=== PATIENT | male | born 2005 | race Asian ===

== ENCOUNTER 2025-07-05 21:31 | Emergency (ER) | payer MEDICAID ==
[~2025-07-05] VITALS: Ht 177.8 cm; Wt 68.7 kg
[2025-07-05 21:52] VITALS: BP 128/86; PULSE 118; RESP 16; O2SAT 97
--- NOTE | 2025-07-05 22:39 | Physician Documentation ---
History of Present Illness ~ Chief Complaint: Hand pain Stated Complaint: WRIST PAIN Time Seen by MD: 22:16 Source: patient Mode of Arrival: POV Exam Limitations: no limitations HPI Patient presents after sustaining trauma to his right hand after punching a wall just prior to arrival. He complains of pain around his dorsal surface of his hand at the level of the 4th and 5th finger. Tetanus within 5 years: No Medication Reconciliation Allergies: Coded Allergies: No Known Allergies (Unverified , 07/05/25) Past Medical History Past Medical History: No Pertinent History Past Surgical History: no surgical history Alcohol Use: None Drug Use: none Lives In: Home Review of Systems All Other Systems at this time: Reviewed and Negative ROS Patient complains of right hand pain. Was asked, but otherwise denies review of systems. Physical Exam Vital Signs: RN Vital Signs have been reviewed: Yes, Temperature: 99.0, Source: Temporal, Heart Rate: 118, Respiratory Rate: 16, BP: 128/86, Pulse Oximetry: 97, Weight: 68.700 Oxygen Flow Rate: 0 Pulse Oximetry Reflects: adequate oxygenation Physical Exam General: Awake, alert, oriented. No apparent distress Neck: Supple. Normal range of motion. No JVD Respiratory: Lungs are clear to auscultation bilaterally. No respiratory distress. Chest: Normal shape and size. No accessory muscle use. Cardiovascular: Regular rate and rhythm. S1-S2. No murmur, gallop, rub. Extremities: Right hand is swollen. There is pain with palpation over the 4th and 5th meta carpal. CMS is intact. Neurologic: Alert and oriented x4. Nonfocal Psychiatric: Normal mood and affect. Skin: Normal color. Warm and dry. Procedures Joint Reduction : Reduction By: myself Conscious Sedation: No Pre-Procedure NV Exam: within normal limits Post-Procedure NV Exam: within normal limits Post Reduction Film: joint reduced Tolerated Procedure Well?: yes, no complications Procedure Note Manual manipulation of the fracture to the 5th meta carpal with good alignment postprocedure. Patient tolerated well with no anesthesia. Ulnar gutter applied postprocedure by tech with CMS intact distally. Progress Progress Note Patient has a boxer's fracture to the 5th metacarpal that is mildly displaced. He was offered hematoma block versus no anesthesia. Patient did not wish for anesthesia and wished to undergo procedure without. Results/Orders Results/Orders Orders - ARACELI GUDINO NP Hand, Complete (3vw Min) (07/05/25 23:30) Completed Orders - ARACELI GUDINO NP Hand, Complete (3vw Min) (07/05/25 23:30) Vital Signs 07/05/25 07/06/25 21:52 00:01 Temp 99.0 99.0 Pulse 118 Resp 16 B/P (MAP) 128/86 Pulse Ox 97 O2 Flow Rate 0 Medical Decision Making Findings Patient presented with hand pain after punching a wall. X-ray was reviewed by myself as well as the radiologist that revealed a displaced 5th meta carpal fracture. Underwent manual reduction without anesthesia. Tolerated well. Post reduction x-ray with good alignment. Ulnar gutter splint applied. Follow up with orthopedic surgeon and primary care provider. Education was provided. Patient verbalized understanding. No evidence of other acute fractures or abnormalities. Departure Time of Disposition: 00:00 Disposition: 01 HOME / SELF CARE / HOMELESS Impression: Primary Impression: Fracture of hand Qualified Codes: S62.91XA - Unspecified fracture of right wrist and hand, initial encounter for closed fracture Condition: Stable Discharge Instructions: Boxer's Fracture Additional Instructions: Splint will be on for probably 3-6 weeks. He will need to follow up with your primary care provider. Also recommend that you follow up with the orthopedist. I have given you the number for Dr. Melton. Please call his office on Monday to set up follow up. Do not get your splint wet. Return for significant swelling, redness not being able to failure fingertips or any other concerns. Keep your hand elevated to avoid swelling. Take ibuprofen for pain as needed. Return for new or worsening symptoms. Referrals: NO PRIMARY CARE PROVIDER (PCP) GILLES MELTON Jr., MD Education Educated: Patient Educated regarding: diagnosis, treatment, need for follow up Signature Scribe Signature: No scribe Attestation: The note accurately reflects work and decisions made by me.Araceli Gudino - INCIDENT RESPONSE COORDINATOR 07/06/25 00:13 ARACELI GUDINO NP Jul 05, 2025 22:39
--- NOTE | 2025-07-05 22:51 | RADIOLOGY REPORT ---
CLINICAL INDICATION: R/O FX TECHNIQUE: 2 views DI HAND,LIMITED (AP/LAT) Comparison: None FINDINGS: Comminuted, mildly displaced and dorsally angulated 5th metacarpal distal diaphysis fracture. Associ ated soft tissue swelling. No dislocation or additional fracture. IMPRESSION: 1. Acute right 5th metacarpal fracture.
--- NOTE | 2025-07-05 23:48 | RADIOLOGY REPORT ---
CLINICAL INDICATION: post reduction TECHNIQUE: 3 views DI HAND, COMPLETE (3VW MIN) Comparison: None FINDINGS/IMPRESSION: 1. Decreased displacement and dorsal angulation of the 5th metacarpal fracture status post closed red uction. No other short interval change.
[2025-07-06 00:01] VITALS: TEMP 99
== END 2025-07-06 00:05 | disposition home or self-care (01) ==
LOC: ER 21:33 → EDBD 21:33 → ER 07-06 00:05
DX: S62.101A Fracture of unspecified carpal bone, right wrist, initial encounter for closed fracture (principal); W22.01XA Walked into wall, initial encounter; Y93.89 Activity, other specified; Y92.89 Other specified places as the place of occurrence of the external cause; Y99.8 Other external cause status
CPT/HCPCS: 26605; 73120; 73130; 99284